=== PATIENT | female | born 2000 | race Caucasian/White ===

== ENCOUNTER 2021-05-05 07:54 | Inpatient (IN) ==
--- NOTE | 2021-05-05 08:40 | History & Physical Report ---
Date of Service May 05, 2021 Assessment & Plan (1) Encounter for induction of labor: Plan: 20yo at 41 weeks GA presents for IOL. - AROM today - Epidural declined - Labor: weathers balloon inserted this morning, start pit - Vitals: afebrile, WNL (2) Supervision of normal intrauterine in primigravida: Admission and Anticipated Discharge Date Admission Date: May 05, 2021 History of Present Illness Chief Complaint: IOL Primary Care Provider: [facility] 20yo at 41 weeks GA presents for IOL. Contractions: not yet, just some mild cramping Vaginal Bleeding: no Leakage of fluid: no Movement: yes Course IUGR (resolved 03/20/21) Otherwise uncomplicated course thus far. 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: Neg, Operations/Hospitalizations(Year/reason): Pos (T&A), Anesthesia Complications: Neg, Hx of abnml PAP: Neg, Uterine Anomaly/BIANCA: Neg, Infertility: Neg, ART treatment: Neg, Complications: Neg, Cancer: Neg, Relevant Family Hx: Pos (see pfsh) and Other: Pos (varicella vaccine) Tobacco: Denies use, some second hand smoke Alcohol: Denies use Illicit/Recreational Drugs: Denies use Infection History & Risk Profile Infection History: Hx Chlamydia: No, Hx Genital Herpes: No, Hx Gonorrhea: No, Hx Hepatitis: No, Hx HIV/AIDS: No, Hx Human Papilloma Virus (HPV): No, Hx Syphilis: No, Hx Tuberculosis: No, Rash or viral illness since LMP: No and Prior GBS infec jorge child: No GBS neg labs: Lab Results OB Labs: Blood Type A Positive 09/30/20 Antibody Screen NEGATIVE 09/30/20 Hemoglobin 10.3 g/dL (12.0-16.0) L 12/06/21 Hematocrit 31.3 % (37-47) L 02/13/21 Mean Corpuscular Volume 90.8 fL (80-100) 09/30/20 Platelet Count 321 K/uL (130-400) 09/30/20 Rubella IgG Antibody Immune (Immune) 09/30/20 Rapid Plasma Reagin Nonreactive (Nonreactive) 09/30/20 Hepatitis B Surface Antigen Neg (Neg) 09/30/20 HIV (1&2) Ab and P24 Ag, 4th Gener Neg (Neg) 09/30/20 Glucose 1 Hour 50 gm Load 115 mg/dl (70-130) 02/09/21 OB Optional Labs: Chlamydia trachomatis RNA NOT DETECTED (NOT DETECTED) 09/30/20 Neisseria gonorrhoeae RNA NOT DETECTED (NOT DETECTED) 09/30/20 Labs Reviewed: low risk cfdna neg cf/sma declines afp Allergies Allergy/AdvReac Type Severity Reaction Status Date / Time No Known Allergies Allergy Verified 05/05/21 09:14 Home Medications Medication Instructions Recorded Confirmed Type prenat.vits,javier,qid-[id number]-azxki 1 tab PO DAILY 09/28/20 05/05/21 History Patient History Medical History Intrauterine growth restriction, antepartum No pertinent past medical history Surgical History S/P tonsillectomy and adenoidectomy Family History Aunt Cancer Social History Smoking Status: Never smoker Hx Alcohol Use: No Hx Substance Use: No Preferred Language: Montenegrin Communication Ability: Effective 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 Beliefs That Will Affect Care: None marital status: Single marital status details: Lm (21) [phone] in (active) Current Living Situation: Significant Other current occupational status: employed 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 denies recent injury Skin: denies new rash Neuro: denies new numbness, tingling, weakness. Physical Exam Physical Exam: General: Alert, oriented, no acute distress Cardiac: Regular rate and rhythm. No murmurs appreciated. Respiratory: Clear to auscultation b/l with good air flow entry, symmetric chest rise and fall. No wheezes or crackles. No increased work of breathing or accessory muscle use Abdomen: Gravid, soft, nontender. No guarding or CVA tenderness. Skin: No rashes or lesions Extremities: Warm, dry, well-perfused. Trace lower extremity edema without erythema. No calf tenderness. Pelvic Exam per Dr. Joseph Dilation: 1 Effacement: 70 Station: -1 Genitourinary: OB Exam Abdomen: + vertex, + estimated weight (7-8 pounds) and + irregular contractions OB Exam Monitor Tracing: + external FHT monitor used, + external uterine monitor used, + category I and + normal FHT variability Results & Data ([facility]) Vital Signs (Past 12 Hours) Vital Signs Pulse BP 05/05/21 08:02 89 122/76 Supervising Physician Co-Signing Physician Notes Resident Physician Supervision Note: I interviewed and examined the patient. Discussed with Dr. Vargas and agree with findings and plan as documented in the note. Any exceptions or clarifications are listed here: Induction of labor being done because of post term . Documented By: Ana Joseph MD, FACOG Resident Activity Tracking Resident Involvement: Resident Care Provided Care Provided: OB Delivery
[2021-05-05] MEDS ORDERED: OXYTOCIN 30 UNITS/500 ML BAG IV PRN ×2 (08:48)
[2021-05-05] MEDS: LACTATED RINGER'S 1,000 ML IV PRN ×3 (09:08→20:56)
[2021-05-05 09:20] LABS: Hematocrit (blood only) 32.1 % (37-47); Hemoglobin 10.5 g/dL (12.0-16.0); Mean Corpuscular Hemoglobin 28.8 pg (25-34); Mean Corpuscular Hgb Conc 32.7 g/dL (32-36); Mean Corpuscular Volume 88.2 fL (80-100); Platelet Count 253 K/uL (130-400); RDW Coefficient of Variation 13.7 % (11.5-14.5); RDW Standard Deviation 43.6 fL (36.4-46.3); Red Blood Count 3.64 M/uL (4.2-5.4); White Blood Count 9.12 K/uL (4.8-10.8)
[2021-05-05] MEDS ORDERED: ONDANSETRON INJ 2 MG/ML 2 ML VIAL IV PRN ×2 (20:26→21:19)
[2021-05-05] MEDS ORDERED: BUTORPHANOL TARTRATE 1 MG/ML VIAL IV PRN (20:27)
[2021-05-05] MEDS ORDERED: ePHEDrine sulfate 50 MG/ML AMP ONE (20:50)
[2021-05-05] MEDS ORDERED: fentaNYL 2MCG/ML ROPIVACAINE 1.25MG/ML 100 ML BAG EPI ONE (20:50)
[2021-05-05] MEDS ORDERED: SODIUM CHLORIDE 0.9% INJ 10 ML VIAL ONE (20:50)
[2021-05-05] MEDS ORDERED: BUPIVACAINE 0.25% 30 ML VIAL ONE (20:50)
[2021-05-05] MEDS ORDERED: fentaNYL citrate 100 MCG/2 ML VIAL ONE (20:50)
--- NOTE | 2021-05-05 21:16 | Anesthesiology Consultation ---
Date of Service May 05, 2021 Assessment & Plan (1) Encounter for pre-operative examination: Chart Review Chart Review: Patient NOT seen in Pre Admission Testing and Acceptable Risk for Labor Epidural Consults Requested none History Height/Weight Height: 5 ft 3 in Weight: 96.162 kg Allergies Allergy/AdvReac Type Severity Reaction Status Date / Time No Known Allergies Allergy Verified 05/05/21 09:14 Medications Home Medications Medication Instructions Recorded Confirmed Last Taken prenat.vits,javier,kkx-smbh-owlgn 1 tab PO DAILY 09/28/20 05/05/21 1 Day Ago ~05/04/21 Active Medications Generic Name Dose Route Start Last Admin Trade Name Freq PRN Reason Stop Dose Admin Oxytocin 30 units in 500 mls @ 25 mls/hr 05/05/21 08:48 05/05/21 18:56 Pitocin IV 05/07/21 08:47 1.5 units/hr .Q20H PRN 25 mls/hr Labor Induction/Augmentation Titration Protocol 1.5 UNITS/HR Lactated Ringer's 1,000 mls @ 125 mls/hr 05/05/21 08:48 05/05/21 20:56 Lr IV 05/07/21 08:47 999 mls/hr .Q8H PRN Administration L&D Protocol Protocol Past Medical History Medical History Intrauterine growth restriction, antepartum No pertinent past medical history Past Family History Family History Aunt Cancer Past Surgical History Surgical History S/P tonsillectomy and adenoidectomy Social History Smoking Status: Never smoker Hx Alcohol Use: No Hx Substance Use: No Physical Exam Vital Signs Last Vital Signs Temp 36.5 C 05/05/21 19:07 Pulse 108 H 05/05/21 20:25 Resp 18 05/05/21 19:07 BP 132/90 05/05/21 20:25 Testing Laboratory Results 05/05/21 09:06 Blood Type A Positive 05/05/21 09:06 Antibody Screen NEGATIVE 05/05/21 09:06
[2021-05-05] MEDS ORDERED: fentaNYL 2MCG/ML ROPIVACAINE 1.25MG/ML 100 ML BAG EPI PRN (21:19)
[2021-05-05] MEDS ORDERED: ePHEDrine sulfate 50 MG/ML AMP IV PRN (21:19)
[2021-05-05] MEDS ORDERED: NALOXONE HCL 1 MG in SODIUM CHLORIDE 0.9% 1000ML 1,000 ML IV PRN (21:19)
[2021-05-05] MEDS ORDERED: NALBUPHINE HCL INJ 10 MG/ML AMP IV PRN (21:19)
[2021-05-05] MEDS ORDERED: NALOXONE HCL 0.4 MG/1 ML VIAL/CARP IV PRN (21:19)
[2021-05-05] MEDS ORDERED: diphenhydrAMINE 50 MG/ML VIAL IV PRN (21:19)
[2021-05-06] MEDS: LACTATED RINGER'S 1,000 ML IV PRN (01:13)
[2021-05-06] MEDS ORDERED: IBUPROFEN 600 MG TAB PO PRN (04:25)
[2021-05-06] MEDS ORDERED: HYDROCORTISONE ACETATE 25 MG SUPP PR PRN (04:25)
[2021-05-06] MEDS ORDERED: oxyCODONE/ACETAMINOPHEN 5mg/325mg TAB PO PRN (04:25)
[2021-05-06] MEDS ORDERED: OXYTOCIN 30 UNITS/500 ML BAG IV PRN (04:25)
[2021-05-06] MEDS ORDERED: ACETAMINOPHEN 325 MG TAB PO PRN (04:25)
[2021-05-06] MEDS ORDERED: BENZOCAINE 20% AER SPR 82.5 GM CAN EXT PRN (04:25)
[2021-05-06] MEDS ORDERED: DIPHTHERIA/TETANUS/PERTUSSIS 0.5 ML SYR/VIAL IM ONE (04:25)
--- NOTE | 2021-05-06 04:40 | Delivery Summary ---
Vaginal Delivery Summary Date of Service May 06, 2021 Vaginal Delivery Summary and 1st Degree LAC Patient is a 20-year-old 1 P0 white female who presents for induction of labor because of postterm . A cervical balloon was placed on admission and Pitocin augmentation was begun at the same time. After the balloon was expelled, she was 4 cm dilated and membranes were ruptured for clear fluid. She requested epidural analgesia which was effective. She progressed to full dilation with the urge to push. She pushed effectively over intact perineum for delivery of a viable female infant. After the head was delivered in the occiput anterior presentation, there was a tight nuchal cord which was cut and clamped prior to delivering the shoulders. The rest of the delivered easily and was placed on the mother's abdomen for further attention and drying. She was vigorous and moving all 4 limbs. Placenta was then expressed intact with a three-vessel cord. A first-degree vaginal laceration was repaired with 3-0 chromic in the usual fashion. bleeding was controlled with dilute Pitocin. Her bladder was then emptied for 200 cc of clear urine. Estimated blood loss was 300 cc. Mother and infant were doing well after delivery[place] [facility] [place] Charge Delivery Type Details: and 1st Degree LAC Indication for Procedure Indication for procedure: unfavorable cervix at term Misx Procedure Codes 06744 Placement of cervical dilator
--- NOTE | 2021-05-06 07:24 | Anesthesia Procedure Note ---
Date of Service May 06, 2021 Anesthesia Post Epidural Note Vital Signs Vital Signs: Temp Pulse Resp BP Pulse Ox 36.7 C 97 H 18 128/76 99 05/06/21 04:20 05/06/21 06:21 05/06/21 06:20 05/06/21 06:21 05/06/21 04:23 Notes Mental Status: alert / awake / arousable and participated in evaluation Nausea / Vomiting: adequately controlled Pain: adequately controlled Airway Patency, RR, SpO2: stable & adequate BP & HR: stable & adequate Hydration State: stable & adequate Neuraxial Anesthesia: was administered and sensory block is resolving Anesthetic Complications: no major complications apparent and Pt Satisfied with anesthetic care Epidural: Removed without complications and With tip intact Notes: Epidural site clean, dry and intact. No signs of edema, erythema or bruising at insertion site. Pt instructed to request anesthesia if she has residual lower extremity numbness or if she develops lower extremity pain or weakness, back pain or headache.
[2021-05-06] MEDS: DOCUSATE SODIUM 100 MG CAP PO SCH ×2 (09:15→22:16)
[2021-05-06] MEDS: PRENATAL VITAMIN 1 TAB PO SCH ×2 (09:15→09:17)
[2021-05-07 06:46] LABS: Hematocrit (blood only) 27.5 % (37-47); Mean Corpuscular Hemoglobin 29.2 pg (25-34); Mean Corpuscular Hgb Conc 32.7 g/dL (32-36); Mean Corpuscular Volume 89.3 fL (80-100); Platelet Count 207 K/uL (130-400); RDW Coefficient of Variation 14.2 % (11.5-14.5); RDW Standard Deviation 46.7 fL (36.4-46.3); Red Blood Count 3.08 M/uL (4.2-5.4); White Blood Count 13.52 K/uL (4.8-10.8)
--- NOTE | 2021-05-07 07:41 | Obstetrical Progress Note ---
Date of Service May 07, 2021 Assessment & Plan (1) Vaginal delivery: Doing well. Would like d/c this evening. Instructions given. A+/RI. Day #:: 1 Subjective Ambulation: ambulating normally Voiding: no voiding problems Passing Gas:: Yes Diet Tolerance:: regular diet Lochia:: Small Feeding Type:: breast feeding Physical Exam Constitutional WD/WN, vitals as above Cardiovascular Extremities: no calf tenderness and no edema Gastrointestinal (Abdomen) soft, nt, nd ff/nt at u Results & Data ([facility]) Vital Signs (Past 12 Hours) Vital Signs Temp Pulse Resp BP Pulse Ox 05/07/21 03:09 36.4 C L 98 H 16 107/72 97 05/06/21 23:04 36.4 C L 78 16 107/70 98
[2021-05-07] MEDS: DOCUSATE SODIUM 100 MG CAP PO SCH (08:24)
[2021-05-07] MEDS: PRENATAL VITAMIN 1 TAB PO SCH (08:24)
[2021-05-07] MEDS ORDERED: bisacodyL 5 MG TABEC PO SCH (20:00)
[2021-05-08] MEDS ORDERED: bisacodyL 10 MG SUPP PR PRN
== END 2021-05-07 16:32 | disposition home or self-care (01) | DRG 807 ==
LOC: 4S1 07:54 → 4S2 05-06 06:37